=== PATIENT | male | born 1965 | race Caucasian/White ===

== ENCOUNTER → 2016-10-05 | Outpatient (CLI) | payer BC ==
[2016-10-05 11:36] LABS: Basophils % (A) 1 %; CH 29.6; CHCM 33.7; Eosinophils # (A) 0.1 k/uL (0-0.7); Eosinophils % (A) 1 %; HCT 44.7 % (39.0-53.0); HDW 2.53; HGB 14.4 gm/dL (13.0-17.5); Luc # (Auto) 0.15; Luc % (Auto) 2; Lymphocytes # (A) 1.5 k/uL (1.0-4.8); Lymphocytes % (A) 23 %; MCH 28.2 pg (25.0-35.0); MCHC 32.1 g/dL (31.0-37.0); MCV 87.9 fL (80.0-100.0); Mean Platelet Volume 6.5; Monocytes # (A) 0.4 k/uL (0-1.0); Monocytes % (A) 7 %; Neutrophils # (A) 4.1 k/uL (1.3-7.7); Neutrophils % (A) 66 %; RBC 5.09 m/uL (4.30-5.90); RDW 13.1 % (11.5-15.5); WBC 6.3 k/uL (3.8-10.6); WBC (Perox) 6.72
[2016-10-05 11:54] LABS: Potassium 4.5 mmol/L (3.5-5.1)
[2016-10-05 12:49] LABS: INR 1.1 (<1.1); Partial Thromboplastin Time 25.6 sec (22.0-30.0); Prothrombin Time 10.9 sec (9.0-12.0)
== END | disposition home or self-care (01) ==
LOC: LABPAT 11:10
PROVIDERS: ATTEND Orthopaedic Surgery
DX: Z01.812 Encounter for preprocedural laboratory examination (principal)
CPT/HCPCS: 80051; 85025; 85610; 85730; 87070

== ENCOUNTER 2016-10-09 09:03 | Inpatient (IN) | payer BC ==
[2016-10-05 09:15] VITALS: BMI 38.2
--- NOTE | 2016-10-08 13:29 | HP ---
DATE OF ADMISSION: 10/09/2016 Charlie Major is a 51-year-old patient seen with symptomatic right knee osteoarthritis. After having treatment options discussed, he elected to proceed with right total knee arthroplasty. Consent was obtained. Medical clearance had been previously provided. Past medical history is hypertension. PAST SURGICAL HISTORY: Left total knee arthroplasty. DAILY MEDICATIONS: 1. Linsey. 2. Aleve. ALLERGIES: None. SOCIAL HISTORY: Patient denies tobacco use. Physical evaluation of right knee: Range of motion is 0 to 120 degrees, tenderness along the medial joint line. Positive medial Tricia's. Crepitus medial and patellofemoral compartments with range of motion. Pain with patellofemoral compression. Ligaments stable. Hip rotation without pain. Distal neurovascular exam intact. Radiographs of the right knee revealed severe medial and moderate patellofemoral compartment osteoarthritis. IMPRESSION: Right knee osteoarthritis. PLAN: Right total knee arthroplasty.
[~2016-10-09 09:03] MED LIST: ACETAMINOPHEN TAB 500 MG TAB PO ONE; DEXAMETHASONE SOD PHOSPHATE 10 MG/ML 1 ML VIAL IV ONE; FAMOTIDINE 20 MG/2 ML VIAL IV PRN; HYDROmorphone 1 MG/ML 1 ML SYRINGE IVP PRN; LACTATED RINGERS 1,000 ML IV SCH; LIDOCAINE 1% 20 ML VIAL (10MG/ML) FOR IV START INTRADERMA PRN; MELOXICAM 7.5 MG TAB PO ONE; MIDAZOLAM 2 MG/2 ML VIAL IV PRN; ONDANSETRON 4 MG/2 ML VIAL IVP ONE; SCOPOLAMINE 1.5MG/72HR PATCH TRANSDERM ONE; TRANEXAMIC ACID 1,000 MG in SODIUM CHLORIDE 0.9% 100 ML IVPB ONE; ceFAZolin 3 GM in SODIUM CHLORIDE 0.9% 100 ML IVPB ONE
[2016-10-09 11:08] VITALS: RESP 16
[2016-10-09] MEDS ORDERED: ROPIVACAINE 246.25 MG, EPINEPHrine 0.5 MG, KETOROLAC 30 MG, cloNIDine HCL/PF 80 MCG, WA... MISCELLANE ONE ×5 (12:53)
[2016-10-09] MEDS ORDERED: MORPHINE SULFATE (PF) 0.3 MG/0.3 ML SYR ONE (13:44)
[2016-10-09] MEDS ORDERED: fentaNYL (PF) 50 MCG/ML 2 ML AMP ONE (13:44)
[2016-10-09] MEDS ORDERED: MIDAZOLAM 2 MG/2 ML VIAL ONE (13:44)
[2016-10-09] MEDS ORDERED: PROPOFOL 10 MG/ML 20 ML VIAL IV ONE (13:44)
[2016-10-09] MEDS ORDERED: TRANEXAMIC ACID 1,000 MG/10 ML VIAL ONE (13:44)
[2016-10-09] MEDS ORDERED: SODIUM CHLORIDE 0.9% 100 ML BAG ONE (13:44)
[2016-10-09] MEDS ORDERED: LACTATED RINGERS 1,000 ML IV ONE (14:17)
[2016-10-09] MEDS ORDERED: ceFAZolin 3,000 MG in SODIUM CHLORIDE 0.9% IRRIGATIO 3,000 ML IRRIGATION ONE (14:17)
[2016-10-09] MEDS ORDERED: NALOXONE 0.4 MG/ML 1 ML VIAL IV PRN ×2 (15:32→17:09)
[2016-10-09] MEDS ORDERED: HYDROcodone/APAP 7.5-325MG 1 EACH TAB PO PRN (15:32)
[2016-10-09] MEDS ORDERED: HYDROmorphone 1 MG/ML 1 ML SYRINGE IVP PRN ×3 (15:32)
[2016-10-09] MEDS ORDERED: hydrOXYzine PAMOATE 25 MG CAP PO PRN (15:32)
[2016-10-09] MEDS ORDERED: ONDANSETRON 4 MG/2 ML VIAL IVP PRN (15:32)
--- NOTE | 2016-10-09 15:33 | P.OP ---
Date of Procedure: 10/09/16 Preoperative Diagnosis: Right knee osteoarthritis Postoperative Diagnosis: Right knee osteoarthritis Procedure(s) Performed: Right total knee arthroplasty Implants: 1. Janis persona size 11 right standard cruciate retaining cemented femoral component 2. Janis persona size H cemented tibial component 3. Janis persona 14 mm medial congruent polyethylene tibial insert 4. Janis persona 38 mm all polyethylene cemented patella Anesthesia: local, spinal Surgeon: Miguel Ángel Ackerman Daily Release And Dupe Printer #1: Colt Turk Estimated Blood Loss (ml): 200 Pathology: none sent (Bone) Condition: stable Disposition: PACU Indications for Procedure: 51-year-old patient seen with symptomatic right knee osteoarthritis. After treatment options were discussed, he elected to proceed with right total knee arthroplasty. Operative Findings: See description of procedure Description of Procedure: Patient was taken to the operative suite. Patient underwent a spinal anesthetic by the department of anesthesia. Patient was given preoperative IV intake antibiotics and TXA. A well-padded tourniquet was placed about the right lower extremity. The lower extremity was then prepped and draped in the normal sterile orthopedic fashion. The extremity was elevated, a tourniquet was insufflated to 350. A standard anterior incision was made sharply through skin. Dissection was taken down through the subcutaneous soft tissues down to the extensor mechanism. A medial arthrotomy was performed, patella was everted and knee was flexed. There was advanced osteoarthritis noted. A proximal tibial cutting guide was positioned. Proximal tibial cut was made. A distal intramedullary femoral cutting guide was positioned, distal femoral cut made. We placed the appropriate sizing guide and selected the appropriate size. A distal 4-in-1 femoral cutting block was positioned, distal femoral cuts were made. We now placed a trial femoral component into position, along with an appropriate size tibial tray and insert. We now took the knee through range of motion and had full extension good flexion and good overall soft tissue balance noted. The patella was everted and a flush cut made with patellar quad tendon. We templated the patella, appropriate drill holes were made. An appropriate trial patella was positioned, knee was taken through full range of motion with the patella tracking very nicely. The trial patella was removed. Drill holes were made through the femoral component. All trial components were removed after marking off the appropriate rotation of the tibia. Retractors were now positioned along the proximal tibia. An appropriate keel punch was made with the appropriate size tibial guide. At this point appropriate size implants were chosen and opened. The joint was irrigated copiously with pulse lavage mechanical irrigation. The deep soft tissues were infiltrated with local analgesic. We mixed antibiotic methylmethacrylate. Once the methyl methacrylate was ready, the tibial component was cemented into place removing any excess methylmethacrylate. The femoral component was cemented into place removing the removing any excess methylmethacrylate. We then inserted the appropriate size polyethylene tibial insert. We made sure that it was locked into position. We took the knee into full extension, and then back in a flexion making sure we had removed any excess methylmethacrylate. The patellar component was then cemented down and secured with clamp. Excess methylmethacrylate removed. We kept the knee in full extension, patellar clamp in position until methylmethacrylate had hardened. Once it had hardened the patellar clamp was removed. The knee was taken through full range of motion. The patella tracked nicely. There was good soft tissue balancing. The tourniquet was now released. Additional hemostasis was achieved via electrocautery. A second gram of TXA was given. The wound was irrigated with pulse lavage mechanical irrigation. The superficial soft tissues were infiltrated local analgesic. The extensor mechanism was repaired with Vicryl. We checked the repair with range of motion and it was stable. The subcutaneous soft tissues were repaired with Vicryl in layers. The skin was approximated with pernio/Dermabond. Sterile dressings were applied followed by loose web roll and Mil bandage. The patient was transferred to a bed, and taken to recovery in stable and satisfactory condition. Colt HANCOCK assisted with the procedure.
--- NOTE | 2016-10-09 16:30 | XR ---
Limited right knee HISTORY: Status post knee arthroplasty 2 views of the right knee, no comparisons Patient is status post right knee arthroplasty. Patient is rotated. There is anatomic alignment. [place] ncy in the soft tissues compatible with postop state. IMPRESSION: Orthopedic follow-up.
[2016-10-09] MEDS ORDERED: MORPHINE SULFATE 4 MG/ML SYRINGE IVP PRN (17:09)
[2016-10-09] MEDS ORDERED: diphenhydrAMINE 50 MG/ML 1 ML VIAL IVP PRN (17:09)
[2016-10-09] MEDS ORDERED: NALBUPHINE 10 MG/ML AMPUL IV PRN (17:09)
[2016-10-09] MEDS ORDERED: PROMETHAZINE INJ 6.25 MG in SODIUM CHLORIDE 0.9% 50 ML IVPB PRN (17:09)
[2016-10-09] MEDS: traMADol 50 MG TAB PO SCH ×2 (17:17→22:16)
[2016-10-09] MEDS: LACTATED RINGERS 1,000 ML IV SCH (17:17)
[2016-10-09] MEDS: METOCLOPRAMIDE 5 MG/ML 2 ML VIAL IVP PRN ×2 (19:17→19:28)
[2016-10-09] MEDS: ceFAZolin 3 GM in SODIUM CHLORIDE 0.9% 100 ML IVPB SCH (20:48)
[2016-10-09] MEDS ORDERED: SENNOSIDES-DOCUSATE SODIUM 1 EACH TAB PO SCH (21:00)
[2016-10-09] MEDS ORDERED: TEMAZEPAM 15 MG CAP PO PRN (22:00)
[2016-10-10] MEDS: LACTATED RINGERS 1,000 ML IV SCH ×2 (05:24→13:48)
[2016-10-10] MEDS: ceFAZolin 3 GM in SODIUM CHLORIDE 0.9% 100 ML IVPB SCH (05:24)
[2016-10-10] MEDS: traMADol 50 MG TAB PO SCH ×2 (08:05→11:40)
[2016-10-10] MEDS: HYDROcodone/APAP 7.5-325MG 1 EACH TAB PO PRN ×2 (08:20→14:15)
[2016-10-10 08:22] LABS: Basophils % (A) 0 %; CH 29.6; CHCM 33.9; Eosinophils % (A) 0 %; HCT 35.9 % (39.0-53.0); HDW 2.49; HGB 12.1 gm/dL (13.0-17.5); Luc # (Auto) 0.19; Luc % (Auto) 1; Lymphocytes # (A) 1.4 k/uL (1.0-4.8); Lymphocytes % (A) 11 %; MCH 29.5 pg (25.0-35.0); MCHC 33.7 g/dL (31.0-37.0); MCV 87.6 fL (80.0-100.0); Mean Platelet Volume 6.5; Monocytes # (A) 0.7 k/uL (0-1.0); Monocytes % (A) 5 %; Neutrophils # (A) 11.1 k/uL (1.3-7.7); Neutrophils % (A) 83 %; WBC 13.5 k/uL (3.8-10.6); WBC (Perox) 13.79
[2016-10-10] MEDS ORDERED: ENOXAPARIN 30 MG/0.3 ML SYRINGE SQ SCH (09:00)
[2016-10-10] MEDS ORDERED: FAMOTIDINE 20 MG TAB PO SCH (09:00)
[2016-10-10] MEDS ORDERED: MELOXICAM 7.5 MG TAB PO SCH (09:00)
--- NOTE | 2016-10-10 10:54 | P.PN ---
Subjective Principal diagnosis: Status post right total knee arthroplasty Patient is seen today resting in his hospital chair, he appears to be in no acute distress. Patient's pain is well-controlled. He's done well with therapy at this time. He denies chest pain, shortness of breath, fever chills, lightheadedness. Objective - Vital Signs Vital signs: Vital Signs Temp 97.9 F 10/10/16 00:25 Pulse 74 10/10/16 00:25 Resp 16 10/10/16 00:25 BP 173/63 10/10/16 00:25 Pulse Ox 96 10/10/16 07:43 Intake & Output 10/09/16 10/10/16 10/10/16 18:59 06:59 18:59 Intake Total 3201 1000 Output Total 775 500 700 Balance 2426 500 -700 Intake: IV 2701 1000 Lactated Ringers 1,000 ml 900 @ 100 mls/hr IV .Q10H LOI Rx#:[id number] ceFAZolin 3 gm In Sodium 100 Chloride 0.9% 100 ml @ 100 mls/hr IVPB ONCE ONE Rx#:[id number] Oral 500 Output: Urine 575 500 700 Uretheral (Chew) 500 700 Estimated Blood Loss 200 Other: Voiding Method Indwelling Catheter - Exam Right lower extremity: Incision is clean, dry and intact. Minimal swelling present in the right lower extremity. Calf is soft, no tenderness with palpation. Plantar flexion, dorsiflexion, EHL, FHL are intact. Dorsal pedis pulses 2+, cap refills less than 3 seconds. - Labs CBC & Chem 7: 10/10/16 07:50 Labs: Abnormal Lab Results - Last 24 Hours (Table) 10/10/16 Range/Units 07:50 WBC 13.5 H (3.8-10.6) k/uL RBC 4.10 L (4.30-5.90) m/uL Hgb 12.1 L (13.0-17.5) gm/dL Hct 35.9 L (39.0-53.0) % Neutrophils # 11.1 H (1.3-7.7) k/uL Assessment and Plan Plan: Assessment: 1. Postop day #1 status post right total knee arthroplasty Plan: 1. Pain control, we'll discharge home on oral medications 2. Continue weightbearing as tolerated and use of CPM with therapy 3. Encourage incentive spirometry 4. Daily dressing changes/ice and elevate 5. GI and DVT prophylaxis, we'll discharge home on aspirin 325 mg twice a day 6. Medical recommendations 7. Discharge planning: Patient will be discharged home today Time with Patient: Less than 30
--- NOTE | 2016-10-10 10:57 | P.DS ---
Providers Date of admission: 10/09/16 10:45 Expected date of discharge: 10/10/16 Attending physician: Miguel Ángel Ackerman Consults: 10/09/16 15:32 Consult Physician Routine Consulting Provider: Emanuel Baker Consult Reason/Comments: Medical management Do you want consulting provider notified?: Yes Primary care physician: Lila Guillermo Hospital Course: Date of admission: 10/09/2016 Date of discharge: 10/10/2016 Admission diagnosis: Status post right total knee arthroplasty Discharge diagnosis: Same Attending physician: Dr. Ackerman Surgical procedures: Right total knee arthroplasty Brief history: Patient is a 51-year-old male with a history of progressive primary right knee osteoarthritis. At this point patient has failed conservative treatment measures and has opted to proceed with a elective right total knee arthroplasty. Hospital course: Details of patient's surgery can be found in operative report. Patient tolerated the procedure well and was subsequently transported to orthopedic floor. Patient's orthopeidc and medical care was provided daily. Patient had daily laboratory tests performed for evaluation of overall blood counts. Patient had daily physical therapy to include strengthening range of motion as well as education with walker ambulation. Patient had daily CPM usage as part of their physical therapy program. Patient was treated with Lovenox for their postoperative DVT prophylaxis during their inpatient stay. Patient was noted to have a relatively uneventful postoperative course. Patient reported satisfactory pain control with oral pain medications by postoperative day 0. Patient showed satisfactory progress with physical therapy. Patient moved steadily through the program and had no difficulty meeting the goals by postoperative day 1. Given patient's otherwise satisfactory course and having met physical therapy goals, plan is to discharge patient home on postoperative day 1. Discharge condition/disposition: Patient will be discharged home in stable condition. Discharge medications: Instructions are given on resumption of patient's normal daily medications per primary care recommendation, in addition patient will be prescribed Cunningham 7.5 mg/325 mg, tramadol 50 mg, aspirin 325 mg. Discharge instructions: 1. Wound care and infection precautions, keep incision dry and covered while showering, no lotions, creams, moisturizers. No soaking, tubs, pools, hottubs. Do not scrub over the incision. 2. Weight-bear as tolerated with walker / cane until follow-up. 3. Ice and elevate when necessary. Do not exceed 20 minutes per hour with ice pack. 4. Utilize compression sleeve until seen at first follow up appointment. 5. Visiting nursing care. 6. Home physical therapy including home CPM. 7. Pain meds and anticoagulants per prescription. 8. Pain medication has potential to cause constipation. Increase oral fluid and fiber intake. Contact primary care provider if you have not had a bowel movement within 48 hours after discharge 9. No anti-inflammatory medication until discussed at first post operative visit, this including Motrin, Aleve, Mobic, Diclofenac. 10. Follow up in office at 2 weeks postop with Andre Turk PA-C 11. Follow up with your primary care doctor 7-10 days after discharge. 12. Contact [facility] with any questions, . Procedures: Right total knee arthroplasty Patient Condition at Discharge: Good Plan - Discharge Summary New Discharge Prescriptions: Aspirin 325 mg PO BID #60 tab HYDROcodone/APAP 7.5-325MG [Cunningham 7.5] 1 - 2 each PO Q6HR PRN #60 tab PRN Reason: Pain traMADol HCl [Ultram] 50 mg PO Q6H PRN #40 tab PRN Reason: Pain Discharge Medication List Lisinopril [Zestril] 10 mg PO QAM 07/18/16 [History] Omeprazole [PriLOSEC] 20 mg PO AC-BRKFST 07/18/16 [History] Aspirin 325 mg PO BID #60 tab 10/10/16 [Rx] HYDROcodone/APAP 7.5-325MG [Cunningham 7.5] 1 - 2 each PO Q6HR PRN #60 tab 10/10/16 [ Rx] traMADol HCl [Ultram] 50 mg PO Q6H PRN #40 tab 10/10/16 [Rx] Follow up Appointment(s)/Referral(s): [facility], [NON-STAFF] - 1 Week Colt Turk PAC [PHYSICIAN WALL CLEANER] - 10/25/16 2:10 pm Patient Instructions/Handouts: Knee Replacement (DC) Activity/Diet/Wound Care/Special Instructions: pt has CPM and walker at home Orthopedic Discharge Instructions: 1. Wound care and infection precautions, keep incision dry and covered while showering, no lotions, creams, moisturizers. No soaking, pools, hot tubs. Do not scrub over incision. 2. Weight-bear as tolerated with walker / cane until follow-up. 3. Ice and elevate when necessary. Do not exceed 20 minutes per hour with ice pack. 4. Utilize compression sleeve until seen at first follow up appointment. 5. Visiting nursing care. 6. Home physical therapy including home CPM. 7. Pain meds and anticoagulants per prescription. 8. Pain medication has potential to cause constipation. Increase oral fluid and fiber intake. Contact primary care provider if you have not had a bowel movement within 48 hours after discharge. 9. No anti-inflammatory medication until discussed at first post operative visit, this including Motrin, Aleve, Mobic, Diclofenac. 10. Follow up in office at 2 weeks postop with Andre Turk PA-C 11. Follow up with your primary care doctor 7-10 days after discharge. 12. Contact [facility] with any questions, . Discharge Disposition: HOME WITH HOME HEALTH SERVICES
[2016-10-10] MEDS ORDERED: MULTIVITAMINS, THERA 1 EACH TAB PO SCH (12:00)
--- NOTE | 2016-10-10 12:18 | P.PN ---
Progress Note - Text Date:10/10 Time:1210 Patient is status post tkr. Patient seen this morning with VAS score of 1.no c/ o of pruritus, no c/o nausea/vomiting, comfortable and doing well.
[2016-10-10 13:51] VITALS: BP 122/72; PULSE 65; TEMP 98.2
== END 2016-10-10 14:35 | disposition home health service (06) | DRG 470 ==
LOC: 2ORMAIN 10:45 → 3SUR 15:50
PROVIDERS: ADMIT Orthopaedic Surgery; ATTEND Orthopaedic Surgery
PROC: 0SRC0J9 Replacement of Right Knee Joint with Synthetic Substitute, Cemented, Open Approach (ICD-10-PCS; principal; 2016-10-09 12:55)
DX: M17.11 Unilateral primary osteoarthritis, right knee (principal); I10 Essential (primary) hypertension; Z96.652 Presence of left artificial knee joint; Z79.899 Other long term (current) drug therapy
CPT/HCPCS: 80051; 85025; 85610; 85730; 87070; 88300

== ENCOUNTER 2016-10-14 16:03 | Emergency (ER) | payer BC ==
[2016-10-14 16:11] VITALS: RESP 18
--- NOTE | 2016-10-14 16:27 | ED ---
General Adult HPI - General Chief complaint: Extremity Problem,Nontraumatic Stated complaint: legs & thigh swelling/post knee replacement Time Seen by Provider: 10/14/16 16:12 Source: patient, family, RN notes reviewed Mode of arrival: ambulatory Limitations: no limitations - History of Present Illness Initial comments: Chief complaint and history of present illness a 51-year-old male here with his . Patient was sent in by the orthopedic nurse because of swelling to his right leg. The patient reports having had total knee done just 5 days ago. He states efforts are made to place a bag of analgesic medications in the medial mid right thigh at the time of surgery to keep the knee pain free. But apparently was at stopped. Patient reports his had significant swelling from the whole right leg from the thigh to the ankle. Significant and more swelling after the surgery that he had 11 weeks ago after a total knee done on the left side. The patient is taking aspirin twice daily. Denies fever or chills. No shortness of breath. No chest pain. - Related Data Home Medications Medication Instructions Recorded Confirmed Lisinopril [Zestril] 10 mg PO QAM 07/18/16 10/09/16 Omeprazole [PriLOSEC] 20 mg PO AC-BRKFST 07/18/16 10/09/16 Previous Rx's Medication Instructions Recorded Aspirin 325 mg PO BID #60 tab 10/10/16 HYDROcodone/APAP 7.5-325MG [Rogers 1 - 2 each PO Q6HR PRN #60 tab 10/10/16 7.5] traMADol HCl [Ultram] 50 mg PO Q6H PRN #40 tab 10/10/16 Allergies Allergy/AdvReac Type Severity Reaction Status Date / Time No Known Allergies Allergy Verified 10/14/16 16:11 Review of Systems ROS Statement: Those systems with pertinent positive or pertinent negative responses have been documented in the HPI. Review of systems. Patient denying any headache or chest pain or shortness of breath no GI/ problems no complaint of any neuro deficits. Complains of significant swelling from his right thigh to his right ankle and foot area. No complaint of numbness tingling. No significant pain to the knee post surgery. States he is using the knee bending machine and has gotten to 90. All systems are reviewed. Past medical problems significant for GERD, hypertension and osteoarthritis. Surgeries include having had shoulder surgeries, bilateral knees been replaced the most recent one 5 days ago first one 11 weeks ago. The patient's family history father had prostate cancer patient denies any ALLERGIES nonsmoker alcohol occasionally less than once per month. ROS Other: All systems not noted in ROS Statement are negative. Past Medical History Past Medical History: GERD/Reflux, Hypertension, Osteoarthritis (OA) History of Any Multi-Drug Resistant Organisms: None Reported Past Surgical History: Joint Replacement, Orthopedic Surgery Additional Past Surgical History / Comment(s): 07/24/16 total L knee arthroplasty. 10/09/16 total R knee arthroplasty, Other surgical hx: rt shoulder Past Anesthesia/Blood Transfusion Reactions: No Reported Reaction Past Psychological History: No Psychological Hx Reported Additional Psychological History / Comment(s): Pt resides with his spouse. He is independent. No assistive devices. Smoking Status: Never smoker Past Alcohol Use History: Rare Past Drug Use History: None Reported - Past Family History Mother Family Medical History: Rheumatoid Arthritis (RA) Father Family Medical History: Cancer Additional Family Medical History / Comment(s): prostate General Exam - General Exam Comments Initial Comments: General: The patient is awake and alert, he because her nurse told to come in because of swelling to his right leg from his thigh to his ankle. Patient had a total knee done 5 days ago on the right side. No complaint of numbness tingling or significant discomfort. Vital signs show temperature 98.1 pulse 72 respiratory rate 18 pulse ox 99% room air blood pressure 146/90.. Eye: Pupils are equal, round and reactive to light, extra-ocular movements are intact ; there is normal conjunctiva bilaterally. No signs of icterus. Ears, nose, mouth and throat: There are moist mucous membranes and no oral lesions. Neck: The neck is supple, there is no tenderness . Cardiovascular: There is a regular rate and rhythm. No murmur, rub or gallop is appreciated. Respiratory: Lungs are clear to auscultation, respirations are non-labored, breath sounds are equal. No wheezes, stridor, rales, or rhonchi or any shortness of breath.. Gastrointestinal: Soft, non-distended, non-tender abdomen without masses or organomegaly noted. There is no rebound or guarding present. No CVA tenderness. Bowel sounds are unremarkable. No complaint of abdominal problems. Back: No complaint of low back pain. Musculoskeletal: Patient had his left knee replaced left weeks ago with healing well. The patient's right knee was replaced just 5 days ago. His sutures are intact. The right leg from the thigh to the foot is swollen. He reports it started the day after surgery. He is able to wiggle his toes move his ankles. Uses the knee of bending machine home which has gotten him to 90. No hip pain or joint pain. No low back pain. No complaint of numbness tingling or dysfunction. Neurological: No evidence or complaints of any neuro deficits. Skin: Skin is warm and dry and no rashes or lesions are noted. No signs of cellulitis or infection. Wound appears to be healing well this time. Limitations: no limitations Course Vital Signs 10/14/16 16:07 Temperature 98.1 F Pulse Rate 72 Respiratory 18 Rate Blood Pressure 146/90 O2 Sat by Pulse 99 Oximetry Medical Decision Making - Medical Decision Making Ultrasound of the right leg was done and reviewed by radiologist his report is the right common femoral, superficial femoral, popliteal veins are compressed normally and shows no abnormal luminal echoes. Venous waveforms are normal. Impression; no evident deep vein thrombosis within the right lower extremity as visualized. As reported by Dr. Yates The patient be advised to continue on his 2 aspirin daily keep his leg elevated continue with the therapy as directed to follow up with his family physician and his orthopedic surgeon and/or return emergency room as needed. Disposition Clinical Impression: Right leg swelling Disposition: HOME SELF-CARE Condition: Fair Instructions: Leg Edema (ED) Additional Instructions: Keep leg elevated continue with therapy. Follow-up with the orthopedic surgeon and her family doctor or emergency room as needed continue with home medications Time of Disposition: 17:55
--- NOTE | 2016-10-14 17:31 | US ---
EXAMINATION TYPE: US venous doppler duplex LE RT DATE OF EXAM: 10/14/2016 5:11 PM COMPARISON: NONE CLINICAL HISTORY: Status post recent knee arthroplasty, swelling. SIDE PERFORMED: Right Right common femoral, superficial femoral, popliteal veins are compressed normally and shows no abnor mal luminal echoes. Venous waveforms are normal. Grayscale, color Doppler, spectral Doppler imaging performed of the deep veins of the right lower ext remity. IMPRESSION: No evident deep venous thrombosis within the right lower extremity as visualized
[2016-10-14 18:11] VITALS: BP 152/76; PULSE 71; TEMP 97.7
== END 2016-10-14 18:11 | disposition home or self-care (01) ==
LOC: EC 16:03
DX: M79.89 Other specified soft tissue disorders (principal); K21.9 Gastro-esophageal reflux disease without esophagitis; I10 Essential (primary) hypertension; Z79.899 Other long term (current) drug therapy
CPT/HCPCS: 99283

== ENCOUNTER 2019-07-13 08:59 | Emergency (ER) | payer BC ==
[2019-07-13 09:04] VITALS: BP 137/85; PULSE 77; RESP 18; TEMP 97.5
--- NOTE | 2019-07-13 09:24 | ED ---
General Adult HPI - General Chief complaint: Skin/Abscess/Foreign Body Stated complaint: cellulitis on leg Time Seen by Provider: 07/13/19 09:10 Source: patient, RN notes reviewed Mode of arrival: ambulatory Limitations: no limitations - History of Present Illness Initial comments: Patient is a pleasant 54-year-old male presenting to the emergency Department with complaints of concern for cellulitis of his left lower leg. Onset of symptoms was just a day or so ago. She complains of mild discomfort. Patient does have history of similar symptoms previously associated with cellulitis. No fevers. Patient states the area may have been scratched somehow. No other area of involvement. - Related Data Home Medications Medication Instructions Recorded Confirmed Omeprazole [PriLOSEC] 20 mg PO AC-BRKFST 07/18/16 02/28/17 Ibuprofen [Motrin] 400 mg PO Q6HR PRN 02/28/17 02/28/17 Lisinopril [Zestril] 40 mg PO DAILY 02/28/17 02/28/17 Naproxen Sodium [Aleve] 440 mg PO Q12HR PRN 02/28/17 02/28/17 Previous Rx's Medication Instructions Recorded Cefadroxil [Duricef] 500 mg PO Q12HR #20 cap 07/13/19 Mupirocin [Mupirocin 2%] 1 applic TOPICAL TID #60 gm 07/13/19 Allergies Allergy/AdvReac Type Severity Reaction Status Date / Time No Known Allergies Allergy Verified 02/28/17 07:32 Review of Systems ROS Statement: Those systems with pertinent positive or pertinent negative responses have been documented in the HPI. ROS Other: All systems not noted in ROS Statement are negative. Constitutional: Denies: fever Eyes: Denies: eye pain ENT: Denies: ear pain Respiratory: Denies: cough Cardiovascular: Denies: chest pain Endocrine: Denies: fatigue Gastrointestinal: Denies: abdominal pain Genitourinary: Denies: dysuria Musculoskeletal: Denies: back pain Skin: Reports: as per HPI, rash Neurological: Denies: weakness Past Medical History Past Medical History: GERD/Reflux, Hypertension, Osteoarthritis (OA) History of Any Multi-Drug Resistant Organisms: None Reported Past Surgical History: Joint Replacement, Orthopedic Surgery Additional Past Surgical History / Comment(s): 07/24/16 total L knee arthroplasty. 10/09/16 total R knee arthroplasty, Other surgical hx: rt shoulder Past Anesthesia/Blood Transfusion Reactions: No Reported Reaction Past Psychological History: No Psychological Hx Reported Smoking Status: Never smoker Past Alcohol Use History: Rare Past Drug Use History: None Reported - Past Family History Mother Family Medical History: Rheumatoid Arthritis (RA) Father Family Medical History: Cancer Additional Family Medical History / Comment(s): prostate General Exam Limitations: no limitations General appearance: alert, in no apparent distress Head exam: Present: normocephalic Eye exam: Present: normal appearance Respiratory exam: Present: normal lung sounds bilaterally Cardiovascular Exam: Present: regular rate, normal rhythm GI/Abdominal exam: Present: soft. Absent: tenderness Extremities exam: Present: full ROM. Absent: calf tenderness Neurological exam: Present: alert Psychiatric exam: Present: normal affect, normal mood Skin exam: Present: rash (Lower anterior boo approximately one third of the lower leg anteriorly with mild erythema/cellulitic appearance.) Course Vital Signs 07/13/19 09:00 Temperature 97.5 F L Pulse Rate 77 Respiratory 18 Rate Blood Pressure 137/85 O2 Sat by Pulse 98 Oximetry Disposition Clinical Impression: Cellulitis of left lower leg Disposition: HOME SELF-CARE Condition: Stable Instructions (If sedation given, give patient instructions): Cellulitis (ED) Additional Instructions: Please follow-up with primary care physician in the next couple days for recheck. Return for fevers, increased redness or swelling, pain, worsening symptoms or other concerns. Prescriptions: Cefadroxil [Duricef] 500 mg PO Q12HR #20 cap Mupirocin [Mupirocin 2%] 1 applic TOPICAL TID #60 gm Is patient prescribed a controlled substance at d/c from ED?: No Referrals: Lila Guillermo MD [Primary Care Provider] - 1-2 days Time of Disposition: 09:23
== END 2019-07-13 09:30 | disposition home or self-care (01) ==
LOC: EC 08:59
DX: L03.116 Cellulitis of left lower limb (principal); K21.9 Gastro-esophageal reflux disease without esophagitis; I10 Essential (primary) hypertension; M19.90 Unspecified osteoarthritis, unspecified site; Z79.899 Other long term (current) drug therapy; Z96.653 Presence of artificial knee joint, bilateral
CPT/HCPCS: 99283

== ENCOUNTER → 2020-11-08 | Outpatient (CLI) | payer BC ==
--- NOTE | 2020-11-08 09:07 | CT ---
EXAMINATION TYPE: CT soft tissue neck w con DATE OF EXAM: 11/08/2020 HISTORY: Right sided facial/neck swelling COMPARISON: NONE CT DLP: 925.0 mGycm. Automated Exposure Control for Dose Reduction was Utilized. TECHNIQUE: CT scan of the neck is performed with IV Contrast, patient injected with 100 mL of Isovue 300, axial images are obtained, coronal and sagittal reformatted images are reviewed. FINDINGS: Airway: No gross abnormality seen. Parotid/submandibular glands: Heterogeneous enhancing 2.3 x 2.2 x 2.3 cm solid mass anterior superior aspect right parotid gland coronal image 33 and axial image 80 appears to invade the adjacent muscle . Adjacent prominent but subcentimeter lymph node coronal image 35 laterally. Carotid/Vascular Structures: Mild peripheral plaque left carotid bulb. Osseous Structures: Slight grade 1 retrolisthesis C3 on C4 and C4 on C5 along with C5 on C6. Moderate disc space narrowing C5-C6 level with mild to moderate anterior spurring there is slight scoliotic c urvature on coronal images. Other: Mild to moderate mucosal thickening inferior left maxillary sinus with some additional hyperde nse material, remainder visualized paranasal sinuses are clear. No abnormal greater than 1 cm neck lymph nodes. Scattered prominent but subcentimeter lymph nodes thr oughout the bilateral neck. IMPRESSION: There is 2.3 cm suspicious heterogeneous solid mass anterior superior aspect right paroti d gland possibly invading adjacent deeper muscle worrisome for neoplasm. Advise ENT referral. Advise imaging guided sampling further evaluate.
== END ==
LOC: RADCTMAIN 08:34
PROVIDERS: ATTEND Internal Medicine
DX: R22.1 Localized swelling, mass and lump, neck (principal)
CPT/HCPCS: 70491; Q9967